=== PATIENT | male | born 1950 | race Caucasian/White ===

== ENCOUNTER 2023-08-21 03:59 | Emergency (ER) | payer MEDICARE, BC ==
[2023-08-21] MEDS ORDERED: Ketorolac 30 MG/ML SDV IM STA (04:11)
[2023-08-21] MEDS ORDERED: Acetaminophen/oxyCODONE 325-5 MG Tab PO STA (04:11)
[2023-08-21] MEDS ORDERED: Cyclobenzaprine 10 MG Tab PO ONE (04:11)
== END 2023-08-21 05:50 | disposition home or self-care (01) ==
LOC: FB.ED 03:59
DX: M25.511 Pain in right shoulder (principal); M50.90 Cervical disc disorder, unspecified, unspecified cervical region
CPT/HCPCS: 96372; 99283; A9270-GY; J1885